=== PATIENT | male | born 1990 | race Hispanic/Latino ===

== ENCOUNTER 2016-06-21 11:07 | Emergency (ER) | payer OTHER ==
[~2016-06-21] VITALS: Ht 180.3 cm; Wt 122.7 kg
[2016-06-21 11:11] VITALS: BP 139/86; PULSE 92; RESP 16; O2SAT 96
--- NOTE | 2016-06-21 11:13 | ED.REPORT ---
HPI-Headache Date of Service Jun 21, 2016 ED Provider: Lopez Bravo MD The patient is a 25 year old male who presents to the emergency department complaining of a headache that began yesterday. His symptoms have worsened since onset and he now complains of subjective fever, myalgias, fatigue, malaise , and nasal congestion. He denies chills, sore throat, runny nose, ear pain, neck pain, nausea, vomiting or diarrhea. No one at home has recently been sick. He did not get a flu shot this year. Nursing Notes Stated Complaint: HEAD PAIN/WEAKNESS Chief Complaint: General Complaint Nursing Notes Reviewed: Yes Allergies: Coded Allergies: No Known Allergies (Unverified , 06/21/16) Scheduled PRN Ibuprofen (Ibuprofen) 600 Mg Tablet 600 MG PO QID PRN PRN For Pain Pseudoephedrine/Acetaminophen (Nexafed Sinus Press-Pain Tab) 30 Mg-325 Mg Tablet 1 EACH PO BID PRN PRN For Congestion General Time Seen by MD: 11:11 Chief Complaint Headache Hx Obtained From: Patient Arrived By: Walk-in Sudden in Onset?: Yes Onset Occurred: Yesterday Symptom Duration: Since onset Location: : Generalized Quality: Painful, Pressure Severity: Current: Moderate Severity: Maximum: Moderate Recent Healthcare: No recent doctor visit, No recent hospitalization Similar Sx Previous: No Past Medical History Past Medical History None Family History Noncontributory Smoking History Unknown if Ever Smoker Social History Other Social History: Good social support, Local resident Occupation sed high school teacher Ambulatory Status Independent Review of Systems Constitutional: Reports: Fatigue, Fever (subjective), Malaise, Denies: Chills Ears / Nose / Throat: Reports: Nasal congestion, Denies: Earache bilateral GI: Denies: Diarrhea, Nausea, Vomiting Musculoskeletal: Reports: Myalgia Skin: Denies Rash Neurologic: Reports: Headache Complete sys rev & neg: except as marked. Physical Exam Initial Vital Signs Vital Signs (First) Date Time Temp Pulse Resp B/P Pulse Ox O2 Delivery O2 Flow Rate FiO2 06/21/16 11:11 36.9 92 16 139/86 96 Room Air Initial VS: Reviewed Respiratory: Breath sounds normal, Clear to auscultation, No respiratory distress Cardiovascular: Regular rate & rhythm, Heart sounds normal, Intact distal pulses Abdomen / GI: Soft, Non-tender, No guarding, No rebound, No distention Lymphatic: No lymphadenopathy Extremities: Vascular intact, Neuro intact, No swelling, No tenderness Skin: Warm, Dry, No cyanosis Psychiatric: Mood/affect normal, Behavior normal, Normal thought content General/Constitutional: Awake, Alert, No acute distress, Cooperative Head / Eyes: Atraumatic, Normocephalic, PERRL, EOMI, No nystagmus, No photophobia, Conjunctiva NL, Temporal arteries NL Neck: Atraumatic, Supple, No meningismus, Full range of motion, No swelling, Non-tender, No masses Neurologic: Oriented X3, Speech NL, No motor deficits, No sensory deficits, CN II - XII intact, Cerebellar NL ENT: Atraumatic, Airway patent, Mucous membranes moist, Pharynx NL, No peritonsillar abscess, Tympanic membs NL, Ext aud canal NL, Mastoid area NL Mouth: Negative: Mucous membranes dry Pharynx / Tonsils / Uvula: Negative: Pharyngeal erythema, Tonsillar erythema L , Tonsillar erythema R, Tonsillar exudate L, Tonsillar exudate R, Tonsillar swelling L, Tonsillar swelling R Submandibular tenderness. No stridor. No drooling. Re-Eval/Medical Decision Med Decision/Clinical Course The patient is a healthy 25-year-old male who presents with 2 days of sinus pain /pressure, body aches, subjective fevers and feeling generally unwell. Upon arrival he is afebrile stable vital signs and in no apparent distress. His overall constellation of symptoms suggestive of viral flulike illness. The patient has no significant comorbidities and given that he is a healthy young male I feel that he is unlikely to benefit much from treatment with Tamiflu. Therefore I have opted not performed flu testing. He has no signs or symptoms suggestive of serious bacterial infection, pneumonia or meningitis. I do not feel that chest x-ray laboratory studies are indicated at this time. Here in the emergency department the patient was treated with ibuprofen. He has been advised to use Sudafed for congestion, ibuprofen for comfort and an antibiotic if needed for congestion. Follow-up and return precautions were reviewed in detail he was discharged in good condition. Source of Hx: Old records Re-Evaluation/Progress : Time of Eval: 11:45 Re-Evaluation/Progress Note: Discussed plan for discharge. All questions were addressed. Counseled Regarding: Diagnosis, Need for follow-up, When/why to return to ED Discharge & Departure Impression: Primary Impression: Viral infection Additional Impressions: Headache Headache type: unspecified Headache chronicity pattern: unspecified pattern Intractability: not intractable Qualified Code: R51 - Headache Body aches Disposition: Home Discharge Condition All VS Reviewed: Yes Condition: Stable Additional Instructions: Thank you for seeking care at the emergency room. It is difficult for us to make definitive diagnoses in the ED but we believe that you are experiencing a viral infection. Our primary goal today in the ED was to evaluate you for any life-threatening conditions. Your evaluation was reassuring. I recommend taking a few days off from work. Make sure to rest and drink plenty of fluids. I have prescribed you pseudoephedrine. I recommend not taking this medication at night. Take Ibuprofen 600 mg three times daily for your discomfort. You can also try using a NetiPot. You should follow-up with your primary doctor in the next week. You should return to the ED immediately if you develop fevers, vomiting, cough, shortness of breath, chest pain, lightheadedness, weakness or any other concerning signs or symptoms. ur care today. Referrals: Buddy Vital DO (PCP) Raymond Mendoza MD (Family) Scribe Attestation Portions of this note were transcribed by Doris Ellison. IDr. Bravo personally performed the history, physical exam and medical decision-making; I reviewed and confirmed the accuracy of the information in the transcribed note. Signed by: Young Whitney, 06/21/2016 and 1150. copies to: Raymond Mendoza MD; Buddy Vital Beck O MD Jun 21, 2016 11:12 Doris Ellison Jun 21, 2016 11:29
[2016-06-21] MEDS ORDERED: IBUP-1827 PO (11:45)
[2016-06-21] MEDS ORDERED: [UNRECOGNIZED DRUG - CODE] PO (11:45)
[2016-06-21 12:02] VITALS: PULSE 94; O2SAT 97
== END 2016-06-21 12:03 | disposition home or self-care (01) ==
LOC: SED 11:07
DX: B34.9 Viral infection, unspecified (principal); R51 Headache; M79.1 Myalgia; R50.9 Fever, unspecified; R53.83 Other fatigue; R53.81 Other malaise

== ENCOUNTER 2016-10-29 16:09 | Emergency (ER) | payer OTHER ==
[~2016-10-29] VITALS: Ht 180.3 cm; Wt 122.7 kg
[~2016-10-29 16:09] MED LIST: IBUP-1827 PO; [UNRECOGNIZED DRUG - CODE] PO
[2016-10-29 16:10] VITALS: BP 128/80; PULSE 90; RESP 15; O2SAT 95
[2016-10-29] MEDS ORDERED: ISOT20CA PO (16:15)
--- NOTE | 2016-10-29 17:23 | ED.REPORT ---
HPI-Rash / Abscess Date of Service Oct 29, 2016 ED Provider: Noble Bach PA-C Kiko is otherwise healthy 25-year-old male presenting with a chief complaint of a lump on his thigh. Patient reports that he first noticed what appeared to be a pimple approximately 5 days ago near the left inguinal crease. Reports it has been worsening over that time. He noticed discharge yesterday. Denies fever, valve pain, vomiting, testicular pain, penile discharge, dysuria. Nursing Notes Stated Complaint: LUMP ON THIGH Chief Complaint: Skin Rash/Abscess Nursing Notes Reviewed: Yes Allergies: Coded Allergies: No Known Allergies (Unverified , 10/29/16) Scheduled Clindamycin (Clindamycin) 300 Mg Capsule 300 MG PO QID Isotretinoin (Myorisan) 20 Mg Capsule 20 MG PO DAILY Scheduled PRN Hydrocodone-Acetaminophen 5-325 mg (Hydrocodone-Acetaminophen 5-325 mg) 1 Each Tablet 1-2 TABLET PO QID PRN PRN For Pain General Time Seen by MD: 16:34 Chief Complaint Abscess Past Medical History Past Medical History None Family History Noncontributory Smoking History Unknown if Ever Smoker Social History Other Social History: Good social support, Local resident Occupation middle school art teacher Ambulatory Status Independent Review of Systems Review of Systems Note: Negative unless stated otherwise in history of present illness Physical Exam General: Well appearing, well developed, well nourished, no acute distress. Left thigh: 5 cm x 4 cm area of induration with central fluctuance and a slight amount of drainage at the inguinal crease. Redness extending to mid thigh. Roughly 2 cm simple collection of fluid noted with ultrasound. Head: Atraumatic, normocephalic. Eyes: No scleral icterus or injection. No discharge. Vision grossly intact. ENT: Voice clear, hearing grossly intact. Respiratory: No respiratory distress, no increased work of breathing. Speaks in complete sentences. Skin: Warm and dry. Neurological: Grossly nonfocal. Genitourinary: Normal circumcised male penis without discharge or lesion, testes descended and nontender bilaterally, no masses appreciated. Psychological: alert and oriented. Speech appropriate, linear and logical. Behavior appropriate. Initial Vital Signs Vital Signs (First) Date Time Temp Pulse Resp B/P Pulse Ox O2 Delivery O2 Flow Rate FiO2 10/29/16 16:10 37.2 90 15 128/80 95 Room Air Initial VS: Vital signs normal Procedures Incision & Drainage Abscess Procedure Performed by: Allied health pract Consent / Setup / Site Prep: Consent from patient, Hand hygiene observed Skin Preparation Agent: Hibiclens - Chlorhexidine Local Anesthesia: Lidocaine w epi 1% Incised Abscess with Scalpel: #11 Pus Drained: Medium, Purulent discharge Irrigation: No Post-Procedure / Complications: Packing placed, Culture obtained, Gram stain ordered, Dressing applied, No complications, Condition improved, Tolerated procedure well, Patient stable Re-Eval/Medical Decision Med Decision/Clinical Course Otherwise healthy 25 and now presents with pain, redness, swelling and discharge at the left inguinal crease. Reports worsening over the last 5 days. Denies systemic symptoms of infection. Genitourinary exam is normal. Roughly 2 cm pocket of fluid is noted with ultrasound. Vital signs are normal, afebrile. I believe this is an abscess with some associated cellulitis, and was concerned about granuloma inguinale, hydradenitis suppurativa, sepsis. Abscesses drained with 11 blade, packing placed. Prescribed clindamycin and consideration for surrounding cellulitis. Advised regarding wound care, over- the-counter analgesia. Advised regarding primary care follow-up, provided emergency return precautions. Patient verbalized understanding of, and consent to, the plan. Discharge & Departure Impression: Primary Impression: Abscess Additional Impression: Cellulitis Site of cellulitis: extremity Site of cellulitis of extremity: lower extremity Laterality: left Qualified Code: L03.116 - Cellulitis of left lower limb Disposition: Home Discharge Condition All VS Reviewed: Yes Condition: Stable Patient Instructions: Abscess Incision and Drainage (GEN) Additional Instructions: Evaluation for lump on the thigh in the emergency department includes history and physical examination which reveal an abscess on your left upper thigh. There is no indication of this is a systemic symptoms infection and I believe you are safe to be discharged. We have drained this abscess and packed the wound with gauze. Because it appears to be some surrounding infection, I will give you a prescription for clindamycin, to be taken 4 times a day for 5 days. Please be sure to take every dose. The pain is best treated with 600 mg of ibuprofen (Advil, Motrin) every 6 hours , or 1000 mg of acetaminophen (Tylenol) every 6 hours. These drugs can be taken at the same time for more severe pain. I have written a prescription for a small amount of hydrocodone/acetaminophen 5/ 325 mg which can be SUBSTITUTED for the Tylenol to treat more severe pain. Do not take them together, and do not drink alcohol or operate a vehicle within 4 hours of taking this medication. Wash with soap and water, reapply antibiotic ointment and dressing once or twice a day. If the gauze falls out of the wound, that is okay. Follow-up with your primary care provider in 2-3 days to be sure this is progressing as expected. If that is not possible you are welcome to return to the emergency department. Return to emergency department for any new or worsening symptoms including increasing redness, swelling, pain, feeling ill, fever, racing heart. Referrals: Buddy Vital DO (PCP) EDSupervising Provider for APC: Andrea Trejo DO copies to: Buddy Vital Seth PA-C Oct 29, 2016 17:23
[2016-10-29] MEDS ORDERED: CLIN-78 PO (17:37)
[2016-10-29] MEDS ORDERED: HYDR-4003 PO (17:38)
== END 2016-10-29 17:51 | disposition home or self-care (01) ==
LOC: SED 16:09
DX: L02.416 Cutaneous abscess of left lower limb (principal); L03.116 Cellulitis of left lower limb